=== PATIENT | male | born 1960 | race Caucasian/White ===

== ENCOUNTER → 2020-07-05 | Outpatient (CLI) | payer OTHER ==
[~2020-07-05] MED LIST: ASPIRIN325; GLUCOPHAGE500 MG PO; LISINOPRIL20 MG PO; PROAIR HFA8.5 GM; ZOCOR
== END ==
LOC: MRI 09:27
DX: M47.817 Spondylosis without myelopathy or radiculopathy, lumbosacral region (principal); M48.02 Spinal stenosis, cervical region; M50.221 Other cervical disc displacement at C4-C5 level; M51.26 Other intervertebral disc displacement, lumbar region

== ENCOUNTER → 2020-12-07 | Outpatient (CLI) | payer OTHER ==
[2020-12-07 10:48] LABS: ABSOLUTE NEUTROPHILS 4.2 thou/uL (1.4-8.2); BASOPHILS 0.7 % (0.0-2.0); HEMATOCRIT 43.7 % (42.0-52.0); HEMOGLOBIN 15.3 gm/dL (14.0-18.0); LYMPHOCYTES 16.5 % (24.0-44.0); MCH 31.2 pg (26.0-34.0); MCHC 34.9 g/dL (28.0-37.0); MCV 89.4 fL (80.0-100.0); MONOCYTES 10.2 % (1.0-8.0); PLATELET COUNT 237 thou/uL (150-400); POLYS 70.6 % (36.0-66.0); RBC 4.89 mil/uL (4.50-6.00)
[2020-12-07 11:53] LABS: ANION GAP 9 mmol/L (7-16); BUN 16 mg/dL (7-18); CALCIUM 8.7 mg/dL (8.5-10.1); CHLORIDE 101 mmol/L (98-107); CHOLESTEROL 134 mg/dL (<200); CO2 27 mmol/L (21-32); DIRECT BILIRUBIN 0.1 mg/dL (<0.1-0.2); GLUCOSE 159 mg/dL (74-106); HDL CHOLESTEROL 42 mg/dL (>40); LDL CHOLESTEROL 59 mg/dL (<100); POTASSIUM 4.7 mmol/L (3.5-5.1); SGOT 24 U/L (15-37); SGPT 70 U/L (30-65); SODIUM 137 mmol/L (136-145); TC:HDL 3.2 Ratio (Not establshd); TOTAL BILIRUBIN 0.6 mg/dL (0.2-1.0); TOTAL PROTEIN 7.6 g/dL (6.4-8.2); TRIGLYCERIDE 165 mg/dL (<150); VLDL 33 mg/dL (<40)
[2020-12-07 20:06] LABS: PSA 0.4 ng/mL (0.0-4.0)
[2020-12-07 21:06] LABS: CREATININE (ALB/CR) 154.4 mg/dL (Not Estab.); MICROALBUMIN-RND URINE 5.8 ug/mL (Not Estab.)
[2020-12-08 01:06] LABS: GLYCOHEMOGLOBIN (HGB A1C) 7.7 % (4.8-5.6)
== END ==
LOC: LAB 10:06
PROVIDERS: ATTEND Internal Medicine
DX: Z00.00 Encounter for general adult medical examination without abnormal findings (principal); Z12.5 Encounter for screening for malignant neoplasm of prostate; E55.9 Vitamin D deficiency, unspecified; E78.00 Pure hypercholesterolemia, unspecified; E11.9 Type 2 diabetes mellitus without complications